=== PATIENT | female | born 1975 | race Caucasian/White ===

== ENCOUNTER → 2019-12-29 | Outpatient (CLI) | payer OTHER | LOC: M.ULTRA 14:03 | DX: N63.13 Unspecified lump in the right breast, lower outer quadrant (principal) ==

== ENCOUNTER → 2020-11-06 | Outpatient (CLI) | payer OTHER | LOC: M.ULTRA 09-12 10:00 → M.RAD 10:20 | PROVIDERS: ATTEND Nurse Practitioner Family | DX: N63.13 Unspecified lump in the right breast, lower outer quadrant (principal); N64.59 Other signs and symptoms in breast; M79.89 Other specified soft tissue disorders; N60.01 Solitary cyst of right breast ==